=== PATIENT | female | born 1985 | race Caucasian/White ===

== ENCOUNTER 2023-01-18 18:47 | Outpatient (CLI) | payer OTHER, SELFPAY | END 2023-01-18 18:48 | disposition home or self-care (01) | PROVIDERS: PCP Registered Nurse; Visit Provider Registered Nurse | DX: Z01.419 Encounter for gynecological examination (general) (routine) without abnormal findings (principal); F32.A Depression, unspecified; Z13.6 Encounter for screening for cardiovascular disorders; Z13.1 Encounter for screening for diabetes mellitus; Z13.29 Encounter for screening for other suspected endocrine disorder; F41.9 Anxiety disorder, unspecified | CPT/HCPCS: 80061; 82306; 82947; 84443 ==

== ENCOUNTER 2023-08-23 10:53 | Emergency (ER) | payer OTHER, SELFPAY ==
[2023-08-23 11:06] VITALS: BP 126/81; PULSE 75; RESP 16; TEMP 36.4; O2SAT 99; BMI 27.4
--- NOTE | 2023-08-23 13:33 | ED_ITS ---
HPI - General Adult General Chief complaint: Ear/Nose/Throat Problem Stated complaint: Foreign object lodged in throat Time Seen by Provider: 08/23/23 13:15 History of Present Illness HPI narrative: This 37-year-old female comes in feeling that something is stuck in her esophagus. She was positive for strep pharyngitis and is taking amoxicillin. She took her amoxicillin tablet this morning with only a handful of water to swallow and feels that it got stuck down and her lower esophagus. She has some sensation that something is still there but states that she is able to swallow food and drink without any trouble. She does not have any airway compromise. Related Data Previous Rx's Medication Instructions Recorded levonorgestrel-ethinyl estradiol 1 tab PO QDAY #84 tabs 01/18/23 0.1 mg-20 mcg tablet (Aviane) sertraline 50 mg tablet 50 mg PO QDAY #90 tabs 01/18/23 sertraline 100 mg tablet 100 mg PO QDAY #90 tabs 03/11/23 amoxicillin 500 mg tablet 500 mg PO BID 10 days #20 tabs 08/20/23 Allergies Allergy/AdvReac Type Severity Reaction Status Date / Time No Known Drug Allergies Allergy Verified 08/23/23 11:05 Review of Systems Status of ROS: Reports: 10 or more systems reviewed and unremarkable except as noted in History and below Narrative: Constitutional: No fevers, no weight gain or loss. Eyes: No discharge. No vision changes. HENT: No congestion, no ear pain. She reports that her sore throat is distinctly improved since starting medication. Cardiovascular: No chest pain, no palpitations. Respiratory: No shortness of breath, no wheezes, no cough. Gastrointestinal: No abdominal pain, no vomiting, no diarrhea. Genitourinary: No dysuria, no hematuria. Musculoskeletal: Normal range of motion. Skin: No rashes, no pruritis. Neurological: No dizziness, weakness, sensory change, speech change. Endo/Heme/Allergies: No bruising or bleeding. No polydipsia. Pysch: no suicidality, no anxiety, no insomnia. All other systems reviewed and are negative. [facility] Medical History (Updated 08/20/23 @ 09:20 by Steffi Villanueva NP) TMJ (temporomandibular joint syndrome) ?M26.609 - Unspecified temporomandibular joint disorder, unspecified side (ICD-10) Miscarriage ?O03.9 - Complete or unspecified spontaneous without complication (ICD-10) Varicose veins of left lower extremity with pain ?I83.812 - Varicose veins of left lower extremity with pain (ICD-10) Surgical History (Updated 08/19/23 @ 08:41 by Bhavana Manriquez MD) History of placement of ear tubes (~1988) ?Z96.22 - Myringotomy tube(s) status (ICD-10) Abscess of thigh ?L02.419 - Cutaneous abscess of limb, unspecified (ICD-10) History of vaginal delivery Family History (Updated 08/19/23 @ 08:43 by Bhavana Manriquez MD) Mother Tongue cancer Atrial fibrillation, Onset Age: 68 Aunt Breast cancer, Onset Age: 70 Bipolar disorder Paternal Grandmother Melanoma Social History (Updated 08/19/23 @ 08:43 by Bhavana Manriquez MD) Narrative: , secondary school teacher, 3 children Exercise 3 times a week cardio/weights 30 minute Lifetime nonsmoker Rare alcohol use What is your current living situation?: I presently have a place to live Problems where you live: no known problems In the past 12 months, utilities in danger of being shut off: no In past 12 months, lack of transportation kept you from medical appts, meetings, work, or getting things needed for daily living: no In the past 12 mos, have been you worried that your food would run out before you had money to buy more?: never true In the past 12 mos, the food you bought just didn't last and you didn't have money to buy more?: never true Smoking Status: Never smoker How often does anyone, including family, friends and others, physically hurt you : never How often does anyone, including family, friends and others, insult or talk down to you: never How often does anyone, including family, friends and others, threaten you with harm: never How often does anyone, including family, friends and others, scream or curse at you: never Little interest or pleasure in doing things: not at all Feeling down, depressed, or hopeless: not at all Exam Narrative: Exam Narrative: Constitutional: Well-developed, well-nourished, no acute distress. HEENT: Normocephalic, atraumatic. No sign of airway compromise. Neck: Normal range of motion. Nontender. Supple. Heart: Regular. No murmurs. Normal rate. Intact distal pulses. Lungs: Clear to auscultation. No chest discomfort. No wheezes, rhonchi, or rales. Abdomen: Normal bowel sounds. Nontender. No rebound tenderness. Genitalia: Deferred. Back: No midline tenderness. Normal range of motion. Extremities: Normal range of motion. No injury. Skin: Intact. No rash. Warm. No erythema or pallor. Neurologic: No altered sensation. No weakness. Alert and oriented. Psychiatric: No suicidality. No anxiety or depression. No insomnia. Nursing notes and vitals signs are reviewed. Const: Vital Signs, click to edit/add: Vital Signs - 24 hr 08/23/23 11:06 Temperature 97.6 F Pulse Rate [Pulse Oximeter] 75 Respiratory Rate 16 Blood Pressure [Ri ght Upper Arm] 126/81 Pulse Oximetry 99 Oxygen Delivery Me thod Room Air Course Vital Signs Vital signs: Initial Vital Signs Temperature 97.6 F 08/23/23 11:06 Temperature Source Temporal Artery Scan 08/23/23 11:06 Pulse Rate 75 08/23/23 11:06 Respiratory Rate 16 08/23/23 11:06 Blood Pressure 126/81 08/23/23 11:06 Blood Pressure Mean 96 08/23/23 11:06 Blood Pressure Position Sitting 08/23/23 11:06 Pulse Oximetry 99 08/23/23 11:06 Oxygen Delivery Method Room Air 08/23/23 11:06 Vital Signs Temperature 97.6 F 08/23/23 11:06 Pulse Rate 75 08/23/23 11:06 Respiratory Rate 16 08/23/23 11:06 Blood Pressure 126/81 08/23/23 11:06 Pulse Oximetry 99 08/23/23 11:06 Oxygen Delivery Method Room Air 08/23/23 11:06 Temperature 97.6 F 08/23/23 11:06 Pulse Rate 75 08/23/23 11:06 Respiratory Rate 16 08/23/23 11:06 Blood Pressure 126/81 08/23/23 11:06 Pulse Oximetry 99 08/23/23 11:06 Oxygen Delivery Method Room Air 08/23/23 11:06 Medical Decision Making MDM Narrative Medical decision making narrative: This patient comes in with a sensation in her lower esophagus that something is still there after swallowing her amoxicillin pill. She states that the symptoms are still present but have improved some. She is able to take food and drink and swallow completely. I stated that we do not have a good test to look directly to this area but it is reassuring that she can take food and drink. I did discuss lab and imaging options that can be done here but the patient declined these in a process of shared decision making. She is reassured that she now can take food and drink. Discharge Plan Discharge Additional Instructions: Continue current plans. Increase diet and liquids as tolerated. Follow up with MD return if worsening. Prescriptions: No Action levonorgestrel-ethinyl estrad [Aviane] 0.1-20 mg-mcg tablet 1 tab PO QDAY Qty: 84 2RF sertraline 50 mg tablet 50 mg PO QDAY Qty: 90 3RF amoxicillin 500 mg tablet 500 mg PO BID 10 Days Qty: 20 0RF sertraline 100 mg tablet 100 mg PO QDAY Qty: 90 2RF Follow Up/Referrals: Bhavana Manriquez MD [Primary Care Provider] - Stand Alone Forms: [employer] Info Instructions
[2023-08-23 13:51] VITALS: BP 114/72; PULSE 79; RESP 16; O2SAT 95
== END 2023-08-23 13:53 | disposition home or self-care (01) ==
PROVIDERS: Emergency Provider Emergency Medicine Emergency Medical Services; PCP Family Medicine
DX: Z71.1 Person with feared health complaint in whom no diagnosis is made (principal)
CPT/HCPCS: 99282; 99283; 99284

== ENCOUNTER 2023-09-13 19:34 | Outpatient (CLI) | payer BC, SELFPAY ==
--- NOTE | 2023-09-20 12:03 | W.PM.SLEEP ---
Sleep Study Details Details Interpreting Provider: Breanna Date of Sleep Study: 09/13/23 Sleep Study Details: STUDY TYPE:? Home unattended ? BMI:? 27.9 ORDERING PROVIDER:Bridget Manriquez INDICATION:? Concerns about sleep apnea ? SLEEP SUMMARY:? 466 minutes monitored RESPIRATORY SUMMARY:? AHI 1.3, AHI using rule 1A 2.3 Low oxygen 88 0.3% of study oxygen less than 90% Snoring 0.8% PERIODIC LIMB MOVEMENTS OF SLEEP:? Not recorded during home study CARDIAC:? Range 51-103, mean 68.2 IMPRESSION:? This study does not demonstrate clinically significant obstructive sleep apnea. If sleep disorder is strongly suspected would recommend repeat study in a sleep lab. RECOMMENDATION: See impression
== END 2023-09-13 19:35 | disposition home or self-care (01) ==
LOC: SLEEP 19:36
PROVIDERS: PCP Family Medicine; Visit Provider Family Medicine
DX: R40.0 Somnolence (principal); R06.83 Snoring; R53.83 Other fatigue
CPT/HCPCS: 95806

== ENCOUNTER 2024-11-28 16:11 | Outpatient (CLI) | payer BC, SELFPAY | END 2024-11-28 16:12 | disposition home or self-care (01) | PROVIDERS: PCP Family Medicine; Visit Provider Registered Nurse | DX: R53.83 Other fatigue (principal); R63.5 Abnormal weight gain | CPT/HCPCS: 82306; 82728; 84443 ==